=== PATIENT | female | born 1955 | race Two or more races ===

== ENCOUNTER → 2017-04-13 | Emergency (ER) | payer OTHER ==
[~2017-04-13] VITALS: Ht 160 cm; Wt 104.3 kg
[~2017-04-13] MED LIST: CYMBALTA60 MG; DEPAKOTE ER500 MG PO; GLIMEPIRIDE1 MG; LUNESTA2 MG PO; METFORMIN HCL500 M2; PRILOSEC OTC20 MG PO
== END | disposition home or self-care (01) ==
LOC: ER 09:34
DX: K29.70 Gastritis, unspecified, without bleeding (principal)

== ENCOUNTER 2017-05-11 08:55 | Outpatient (CLI) | payer OTHER | END 2017-05-11 10:02 | disposition home or self-care (01) | LOC: MAMO-SONO 08:55 | DX: C50.919 Malignant neoplasm of unspecified site of unspecified female breast (principal); N64.89 Other specified disorders of breast; N60.11 Diffuse cystic mastopathy of right breast ==

== ENCOUNTER 2017-05-11 09:05 | Outpatient (CLI) | payer OTHER | END 2017-05-11 09:57 | disposition home or self-care (01) | LOC: RAD 09:05 | DX: I11.9 Hypertensive heart disease without heart failure (principal) ==

== ENCOUNTER 2017-05-11 11:07 | Outpatient (CLI) | payer OTHER | END 2017-05-11 11:16 | disposition home or self-care (01) | LOC: NUCLEAR 11:07 | DX: M81.0 Age-related osteoporosis without current pathological fracture (principal); I11.9 Hypertensive heart disease without heart failure; I49.8 Other specified cardiac arrhythmias ==

== ENCOUNTER 2017-11-18 09:03 | Emergency (ER) | payer OTHER ==
[~2017-11-18] VITALS: Ht 160 cm; Wt 102.1 kg
[2017-11-18] MEDS ORDERED: COZAAR50 MG (09:23)
[2017-11-18] MEDS ORDERED: TAMS0.4C PO (13:34)
[2017-11-18] MEDS ORDERED: KETO10TA2 PO (13:34)
== END 2017-11-18 13:48 | disposition home or self-care (01) ==
LOC: ER 09:03
DX: N20.0 Calculus of kidney (principal)

== ENCOUNTER 2018-04-12 14:51 | Emergency (ER) | payer OTHER ==
[~2018-04-12] VITALS: Ht 160 cm; Wt 104.3 kg
[~2018-04-12 14:51] MED LIST changes: +COZAAR50 MG; +KETO10TA2 PO; +TAMS0.4C PO
[2018-04-12] MEDS ORDERED: NORVASC5 MG (15:09)
[2018-04-12] MEDS ORDERED: AVAPRO300 MG (15:10)
== END 2018-04-12 20:55 | disposition home or self-care (01) ==
LOC: ER 14:51
DX: G43.809 Other migraine, not intractable, without status migrainosus (principal)

== ENCOUNTER 2021-05-30 10:57 | Outpatient (CLI) | payer OTHER ==
[~2021-05-30 10:57] MED LIST changes: +AVAPRO300 MG; +NORVASC5 MG
== END 2021-05-30 10:59 | disposition home or self-care (01) ==
LOC: TOM 10:57 → MAMO-SONO 10:57 → TOM 10:59 → MAMO-SONO 10:59
PROVIDERS: ATTEND Internal Medicine Gastroenterology
DX: I11.9 Hypertensive heart disease without heart failure (principal); R06.02 Shortness of breath; Z12.31 Encounter for screening mammogram for malignant neoplasm of breast; C50.919 Malignant neoplasm of unspecified site of unspecified female breast; N63.0 Unspecified lump in unspecified breast; N64.4 Mastodynia; N60.11 Diffuse cystic mastopathy of right breast; N60.12 Diffuse cystic mastopathy of left breast

== ENCOUNTER 2021-06-05 07:39 | Outpatient (CLI) | payer OTHER | END 2021-06-05 07:51 | disposition home or self-care (01) | LOC: TOM 07:39 | PROVIDERS: ATTEND Internal Medicine Gastroenterology | DX: R10.9 Unspecified abdominal pain (principal); K52.9 Noninfective gastroenteritis and colitis, unspecified ==

== ENCOUNTER 2022-01-24 15:10 | Emergency (ER) | payer OTHER ==
[~2022-01-24] VITALS: Ht 160 cm; Wt 108.0 kg
[2022-01-24] MEDS ORDERED: CLONAZEPAM0.125 MG (15:44)
[2022-01-24] MEDS ORDERED: RISPERDAL1 MG (15:44)
== END 2022-01-24 20:23 | disposition home or self-care (01) ==
LOC: ER 15:10
DX: S79.912A Unspecified injury of left hip, initial encounter (principal); W06.XXXA Fall from bed, initial encounter; Y93.89 Activity, other specified; Y92.013 Bedroom of single-family (private) house as the place of occurrence of the external cause; S34.8XXA Injury of other nerves at abdomen, lower back and pelvis level, initial encounter; S89.92XA Unspecified injury of left lower leg, initial encounter

== ENCOUNTER 2023-03-08 19:43 | Emergency (ER) | payer OTHER ==
[~2023-03-08] VITALS: Ht 160 cm; Wt 108.9 kg
[~2023-03-08 19:43] MED LIST changes: +CLONAZEPAM0.125 MG; +RISPERDAL1 MG
[2023-03-08 21:19] LABS: HEMATOCRIT 35.2 % (36.0-45.00); HEMOGLOBIN 11.6 g/dL (12.0-15.00); MEAN CORPUSCULAR HEMOGLOBIN 30.2 pg (27.00-32.0); MEAN CORPUSCULAR HGB CONC 32.9 g/dl (32.0-36.0); PLATELET COUNT 356 K/uL (150-450); RED BLOOD COUNT 3.82 M/uL (4.00-6.00); RED CELL DISTRIBUTION WIDTH 14.2 % (11.5-14.5)
== END 2023-03-08 22:14 | disposition home or self-care (01) ==
LOC: ER 19:43
PROVIDERS: General Practice
DX: J06.9 Acute upper respiratory infection, unspecified (principal); Z20.822 Contact with and (suspected) exposure to COVID-19

== ENCOUNTER 2023-03-21 22:42 | Emergency (ER) | payer OTHER ==
[~2023-03-21] VITALS: Ht 160 cm; Wt 104.3 kg
[2023-03-21] MEDS ORDERED: INDERAL LA120 MG PO (23:00)
[2023-03-21] MEDS ORDERED: RESTORIL15 M1 (23:00)
[2023-03-21] MEDS ORDERED: CARDURA1 MG (23:00)
[2023-03-22 02:17] LABS: HEMATOCRIT 39.8 % (36.0-45.00); HEMOGLOBIN 13.1 g/dL (12.0-15.00); MEAN CELL VOLUME 89.7 fL (80.00-100.00); MEAN CORPUSCULAR HEMOGLOBIN 29.6 pg (27.00-32.0); PLATELET COUNT 383 K/uL (150-450); RED BLOOD COUNT 4.44 M/uL (4.00-6.00); RED CELL DISTRIBUTION WIDTH 14.5 % (11.5-14.5)
[2023-03-22 02:27] LABS: CALCIUM 9.2 mg/dL (8.5-10.1); CREATININE SERUM 0.83 mg/dL (0.55-1.02); GFR 68.16; POTASSIUM 4.1 mEq/L (3.5-5.1)
[2023-03-23] MEDS ORDERED: ZOFRAN8 MG PO (17:09)
[2023-03-23] MEDS ORDERED: INTESTINEX680 M1 PO (17:09)
[2023-03-23] MEDS ORDERED: DICY20TA PO (17:09)
[2023-03-23] MEDS ORDERED: PEPCID20 MG PO (17:09)
== END 2023-03-22 05:50 | disposition home or self-care (01) ==
LOC: ER 22:43
DX: K29.70 Gastritis, unspecified, without bleeding (principal); R11.10 Vomiting, unspecified
CPT/HCPCS: 36415; 74022; 96365; 99284; J2765; J3490

== ENCOUNTER 2023-03-23 10:44 | Emergency (ER) | payer OTHER ==
[~2023-03-23] VITALS: Ht 160 cm; Wt 104.3 kg
[~2023-03-23 10:44] MED LIST changes: +CARDURA1 MG; +INDERAL LA120 MG PO; +RESTORIL15 M1
[2023-03-23 11:52] LABS: HEMATOCRIT 35.1 % (36.0-45.00); HEMOGLOBIN 11.7 g/dL (12.0-15.00); MEAN CORPUSCULAR HEMOGLOBIN 29.9 pg (27.00-32.0); MEAN CORPUSCULAR HGB CONC 33.3 g/dl (32.0-36.0); PLATELET COUNT 306 K/uL (150-450); RED CELL DISTRIBUTION WIDTH 14.8 % (11.5-14.5)
[2023-03-23 12:32] LABS: CALCIUM 8.6 mg/dL (8.5-10.1); CREATININE SERUM 0.68 mg/dL (0.55-1.02); GFR 85.79; POTASSIUM 3.22 mEq/L (3.5-5.1)
[2023-03-23 16:02] LABS: PH,URINE 5.5 (5.0-8.0); URINE APPEARANCE Cloudy; URINE BILIRRUBIN Negative (NEGATIVE); URINE BLOOD Negative; URINE COLOR Yellow; URINE GLUCOSE Negative (NEGATIVE); URINE LEUKOCYTE Negative; URINE NITRATE Negative; URINE PROTEIN Trace (NEGATIVE)
[2023-03-23 16:05] LABS: URINE BACTERIA 891.9 uL (0.0-1933); URINE EPITHELIAL CELLS 19.1 uL (0.0-38.8); URINE RBC 11.2 uL (0.0-20.8); URINE WBC 45.4 uL (0.0-23.2)
[2023-03-23] MEDS ORDERED: INTESTINEX680 M1 PO (17:09)
[2023-03-23] MEDS ORDERED: DICY20TA PO (17:09)
[2023-03-23] MEDS ORDERED: PEPCID20 MG PO (17:09)
[2023-03-23] MEDS ORDERED: ZOFRAN8 MG PO (17:09)
== END 2023-03-23 17:43 | disposition home or self-care (01) ==
LOC: ER 10:44
PROVIDERS: Emergency Medicine
DX: K52.89 Other specified noninfective gastroenteritis and colitis (principal); F32.89 Other specified depressive episodes
CPT/HCPCS: 36415; 96365; 96366; 99284; J7030

== ENCOUNTER 2024-06-18 14:04 | Emergency (ER) | payer OTHER ==
[~2024-06-18] VITALS: Ht 160 cm; Wt 98.0 kg
[~2024-06-18 14:04] MED LIST changes: +DICY20TA PO; +INTESTINEX680 M1 PO; +PEPCID20 MG PO; +ZOFRAN8 MG PO
[2024-06-18] MEDS ORDERED: MOUNJARO10 MG/0.5 SQ (14:20)
[2024-06-18] MEDS ORDERED: CEFTRIAXONE SODIUM 1,000 MG VIAL IM STA (16:15)
[2024-06-18] MEDS ORDERED: HYDROCODONE/CHLORPHEN P-STIREX 5 ML ML PO STA (16:15)
== END 2024-06-18 16:38 | disposition home or self-care (01) ==
LOC: ER 14:07
DX: R53.81 Other malaise (principal); J06.9 Acute upper respiratory infection, unspecified
CPT/HCPCS: 96372; 99282; J0696